=== PATIENT | male | born 1975 | race Caucasian/White ===

== ENCOUNTER 2019-09-24 16:49 | Emergency (ER) | payer BC ==
[~2019-09-24] VITALS: Ht 193 cm; Wt 111.4 kg
[2019-09-24 16:52] VITALS: TEMP 98.6
[2019-09-24 19:00] VITALS: BP 135/78; PULSE 74
== END 2019-09-24 19:19 | disposition short-term general hospital (02) ==
LOC: COL.ER 16:49
DX: S12.500A Unspecified displaced fracture of sixth cervical vertebra, initial encounter for closed fracture (principal); S12.600A Unspecified displaced fracture of seventh cervical vertebra, initial encounter for closed fracture; V86.56XA Driver of dirt bike or motor/cross bike injured in nontraffic accident, initial encounter

== ENCOUNTER → 2019-10-04 | Outpatient (CLI) | payer BC | LOC: COL.RAD 11:10 | DX: S12.601D Unspecified nondisplaced fracture of seventh cervical vertebra, subsequent encounter for fracture with routine healing (principal); S12.500K Unspecified displaced fracture of sixth cervical vertebra, subsequent encounter for fracture with nonunion; Z98.1 Arthrodesis status ==

== ENCOUNTER → 2020-04-19 | Outpatient (CLI) | payer BC | LOC: COL.RAD 10:30 | DX: Z98.1 Arthrodesis status (principal) ==

== ENCOUNTER → 2020-06-03 | Outpatient (CLI) | payer BC | LOC: COL.RAD 11:02 → COL.LAB 11:02 | DX: S12.690D Other displaced fracture of seventh cervical vertebra, subsequent encounter for fracture with routine healing (principal); S12.500K Unspecified displaced fracture of sixth cervical vertebra, subsequent encounter for fracture with nonunion; S12.601D Unspecified nondisplaced fracture of seventh cervical vertebra, subsequent encounter for fracture with routine healing; S12.9XXD Fracture of neck, unspecified, subsequent encounter; Z98.1 Arthrodesis status ==